=== PATIENT | female | born 2000 | race Caucasian/White ===

== ENCOUNTER 2018-03-20 12:40 | Emergency (ER) | payer OTHER ==
[2018-03-20] MEDS ORDERED: NS 1,000 ML IV ONE (13:16)
--- NOTE | 2018-03-20 13:24 | EDPHY ---
H & P Time Seen by Provider: 03/20/18 13:00 HPI/ROS: CHIEF COMPLAINT: Possible seizure HISTORY OF PRESENT ILLNESS: The patient is a 17-year-old female presents emergency department concerned that she may have had a seizure. The patient has a history of migraine headaches. Today she was at work when they were testing the fire alarm and strobe light. About 3 min into the stroke white flashing the patient began to feel lightheaded and dizzy. She felt as though she might pass out. She subsequently noted her job become tight. She then felt numbness in her hands. She felt as though her speech was slightly off. She did not lose consciousness. She would not harm herself and fall. She denies any chest pain or shortness of breath. She has had no recent travel. No leg pain or swelling. Patient's symptoms are completely resolved. Patient has no family history of aneurysm or CVA. REVIEW OF SYSTEMS: My complete review of systems is negative except as mentioned in the HPI. Past Medical/Surgical History: Migraines Past surgical history: Denies Social history: Patient does not smoke Family history: No aneurysm her CVA. No ACS acute MS. Brother had a concussion which caused migraines. Smoking Status: Never smoked Physical Exam: Vitals noted GENERAL: Well-appearing, in no acute distress, alert. HEENT: Eyes normal to inspection, normal pharynx, no signs of dehydration. NECK: No thyromegaly, no lymphadenopathy, supple. RESPIRATORY: Clear to auscultation bilaterally, no rales, rhonchi or wheezing. CVS: Regular rate and rhythm, no rubs, murmurs, or gallops. ABDOMEN: Soft, nontender, nondistended, no organomegaly. BACK: Normal to inspection, no CVA tenderness. SKIN: Normal color, no rash, warm, dry. No pallor. EXTREMITIES: No pedal edema, no calf tenderness, no Homans sign or cords, no joint swelling. NEURO/PSYCH: Higher functions: Alert and Oriented x3. Normal speech and cognition. Normal mood and affect. Cranial nerves: Normal as tested. Cerebellar: Normal as tested. Good finger to nose, good [id number], normal gait. Peripheral exam: Normal motor exam. Normal sensation. Normal reflexes. Constitutional: Initial Vital Signs Temperature (C) 36.7 C 03/20/18 12:45 Heart Rate 83 03/20/18 12:45 Respiratory Rate 17 03/20/18 12:45 Blood Pressure 120/80 03/20/18 12:45 O2 Sat (%) 97 03/20/18 12:45 O2 Delivery Mode Room Air Allergies/Adverse Reactions: milk [Milk] Allergy (Unknown, Verified 03/20/18 12:45) Home Medications: Medication Instructions Recorded No Medications [NO HOME 1 ea MISC 09/11/11 MEDICATIONS] Bcp 03/20/18 Medical Decision Making ED Course/Re-evaluation: In the emergency department I discussed possible etiologies with the patient and her family. I answered all her questions. I discussed diagnostic options. She consented to laboratory studies and EKG. Both the patient and family did not want CT imaging at this time. I discussed limitations of my exam. EKG shows normal sinus rhythm, normal rate, normal axis, normal intervals. There are no ST or T-wave abnormalities. EKG is normal as interpreted by me. Patient's CBC and chemistry unremarkable. Troponin is negative. Differential Diagnosis: My differential includes but is not limited to focal seizure, ischemic CVA, hemorrhagic CVA, mass, malignancy, aneurysm, electrolyte abnormality, sugar abnormality, ACS, acute MS, dysrhythmia, - Data Points Laboratory Results: Laboratory Results 03/20/18 13:27 03/20/18 13:27 03/20/18 03/20/18 03/20/18 13:32 13:27 13:27 WBC RBC Hgb Hct MCV MCH MCHC RDW Plt Count MPV Neut % (Auto) Lymph % (Auto) [place] % (Auto) Eos % (Auto) Baso % (Auto) Nucleat RBC Rel Count Absolute Neuts (auto) Absolute Lymphs (auto) Absolute Monos (auto) Absolute Eos (auto) Absolute Basos (auto) Absolute Nucleated RBC Immature Gran % Immature Gran # Sodium 144 mEq/L mEq/L (135-145) Potassium 4.4 mEq/L mEq/L (3.3-5.0) Chloride 105 mEq/L mEq/L (97-110) Carbon Dioxide 25 mEq/l mEq/l (22-31) Anion Gap 14 mEq/L mEq/L (8-16) BUN 11 mg/dL mg/dL (7-23) Creatinine 0.6 mg/dL mg/dL (0.6-1.0) Estimated GFR > 60 Glucose 85 mg/dL mg/dL (70-100) Calcium 10.2 mg/dL mg/dL (8.5-10.4) POC Troponin I 0.00 ng/mL ng/mL (0.00-0.08) Beta HCG, Qual NEGATIVE 03/20/18 13:27 WBC 5.54 10^3/uL 10^3/uL (3.80-9.50) RBC 4.79 10^6/uL 10^6/uL (4.18-5.33) Hgb 15.2 g/dL g/dL (12.6-16.3) Hct 44.8 % % (38.0-47.0) MCV 93.5 fL fL (81.5-99.8) MCH 31.7 pg pg (27.9-34.1) MCHC 33.9 g/dL g/dL (32.4-36.7) RDW 12.0 % % (11.5-15.2) Plt Count 280 10^3/uL 10^3/uL (150-400) MPV 10.4 fL fL (8.7-11.7) Neut % (Auto) 48.0 % % (39.3-74.2) Lymph % (Auto) 42.8 % % (15.0-45.0) [place] % (Auto) 7.0 % % (4.5-13.0) Eos % (Auto) 1.3 % % (0.6-7.6) Baso % (Auto) 0.7 % % (0.3-1.7) Nucleat RBC Rel Count 0.0 % % (0.0-0.2) Absolute Neuts (auto) 2.66 10^3/uL 10^3/uL (1.70-6.50) Absolute Lymphs (auto) 2.37 10^3/uL 10^3/uL (1.00-3.00) Absolute Monos (auto) 0.39 10^3/uL 10^3/uL (0.30-0.80) Absolute Eos (auto) 0.07 10^3/uL 10^3/uL (0.03-0.40) Absolute Basos (auto) 0.04 10^3/uL 10^3/uL (0.02-0.10) Absolute Nucleated RBC 0.00 10^3/uL 10^3/uL (0-0.01) Immature Gran % 0.2 % % (0.0-1.1) Immature Gran # 0.01 10^3/uL 10^3/uL (0.00-0.10) Sodium Potassium Chloride Carbon Dioxide Anion Gap BUN Creatinine Estimated GFR Glucose Calcium POC Troponin I Beta HCG, Qual Medications Given: Discontinued Medications Sodium Chloride (Ns) 1,000 mls @ 0 mls/hr IV ONCE ONE; Wide Open PRN Reason: Protocol Stop: 03/20/18 13:17 Last Admin: 03/20/18 13:33 Dose: 1,000 mls Point of Care Test Results: Chemistry 03/20/18 13:32 POC Troponin I 0.00 ng/mL ng/mL (0.00-0.08) Departure - Departure Disposition: Home, Routine, Self-Care Clinical Impression: Near syncope Condition: Good Instructions: Near Syncope (ED) Additional Instructions: Return with increasing headache, weakness, numbness, visual change or any other concerns. Referrals: Cm Peralta DO [Doctor of Osteopathy] - 5-7 days, call for appt.
--- NOTE | 2018-03-20 13:35 | CPEKG ---
Heart Rate: 72 RR Interval: 833 P-R Interval: 132 QRSD Interval: 76 QT Interval: 408 QTC Interval: 447 P Steward: 47 QRS Steward: 71 T Wave Steward: 33 EKG Severity - NORMAL ECG - EKG Impression: SINUS RHYTHM Electronically Signed By: Fay Tomas 20-Mar-2018 20:48:41
[2018-03-20 13:41] LABS: PLATELET COUNT 280 10^3/uL (150-400)
[2018-03-20 15:11] VITALS: BP 103/64
== END 2018-03-20 15:13 | disposition home or self-care (01) ==
DX: R55 Syncope and collapse (principal); E86.9 Volume depletion, unspecified
CPT/HCPCS: 84484-PO